=== PATIENT | male | born 1960 | race African-American/Black ===

== ENCOUNTER 2021-06-21 03:38 | Inpatient (IN) | payer SELFPAY ==
[2021-06-21 04:07] VITALS: BMI 28.3
[2021-06-21] MEDS ORDERED: Acetaminophen 650 MG Suppository PR PRN (04:54)
[2021-06-21] MEDS ORDERED: Ondansetron ODT 4 MG TAB PO PRN (04:54)
[2021-06-21 04:56] LABS: SARS-CoV-2 NAA Rapid Test Not Detected (NotDetected)
[2021-06-21] MEDS: Ondansetron PF 4 MG/2 ML Vial IVP PRN ×2 (05:29→19:45)
[2021-06-21 06:27] LABS: Troponin I 0.022 ng/mL (< 0.028)
[2021-06-21] MEDS: Aspirin 81 mg Enteric Coated Tablet PO SCH (09:34)
[2021-06-21] MEDS: Enoxaparin Sodium 40 MG/0.4 ML SYRINGE SC SCH (09:34)
[2021-06-21] MEDS ORDERED: Clopidogrel Bisulfate 75 MG TAB PO SCH (18:00)
[2021-06-21] MEDS: hydrALAZINE 20 MG/ML VIAL SLOW IVP PRN (19:45)
[2021-06-21] MEDS ORDERED: Amlodipine 10 MG TAB PO SCH (20:00)
[2021-06-21] MEDS: Atorvastatin Calcium 40 MG TAB PO SCH (22:11)
[2021-06-22 03:22] LABS: #Eosinphils 0.1 10x3/uL (0.0-0.5); #Monocytes 0.3 10x3/uL (0.0-1.1); #Neutrophils 1.8 10x3/uL (1.5-8.4); %Basophils 0.5 % (0.0-2.0); %Eosinophils 1.3 % (0.0-6.0); %Monocytes 8.6 % (0.0-10.0); %Neutrophils 47.3 % (40.0-75.0); Hemoglobin 14.4 g/dL (13.5-17.5); Mean Corpuscular HGB CONC 33.7 g/dL (32.0-36.0); Mean Corpuscular Hemoglobin 27.8 pg (27.0-33.0); Mean Corpuscular Volume 82.4 fl (81.2-95.1); Mean Platelet Volume 11.9 fl (7.4-10.4); Platelet Count 157 10x3/uL (150-450); RBC Distribution Width 14.4 % (11.5-14.5); Red Blood Cell (RBC) Count 5.18 10x6/uL (4.32-5.72); White Blood Cell (WBC) Count 3.7 10x3/uL (3.5-10.5)
[2021-06-22 05:33] LABS: Anion Gap 14 mmol/L (10-20); BUN (Urea Nitrogen) 11 mg/dL (8.4-25.7); Calc. Creatinine Clearance 94 mL/min (70-130); Calcium 9.1 mg/dL (7.8-10.44); Carbon Dioxide 25 mmol/L (22-29); Cardiac Risk 4.9 (Less than 4.5); Chloride 106 mmol/L (98-107); Cholesterol 207 mg/dl (< 200 Desired); Glucose 94 mg/dL (70-105); HDL Cholesterol 42 mg/dL (>60 Neg Risk); Potassium 3.8 mmol/L (3.5-5.1); Sodium 141 mmol/L (136-145)
[2021-06-22 06:04] LABS: LDL Cholesterol, Calculated 138 mg/dL; Triglycerides 111 mg/dL (Less than 150)
[2021-06-22] MEDS: hydrALAZINE 20 MG/ML VIAL SLOW IVP PRN (07:07)
[2021-06-22] MEDS ORDERED: hydrALAZINE 20 MG/ML VIAL SLOW IVP PRN (07:37)
[2021-06-22] MEDS: Aspirin 81 mg Enteric Coated Tablet PO SCH (09:03)
[2021-06-22] MEDS: Amlodipine 10 MG TAB PO SCH (09:03)
[2021-06-22] MEDS: Clopidogrel Bisulfate 75 MG TAB PO SCH (09:04)
[2021-06-22] MEDS: Enoxaparin Sodium 40 MG/0.4 ML SYRINGE SC SCH (09:04)
[2021-06-22] MEDS: Lisinopril 20 MG TAB PO SCH (09:04)
[2021-06-22] MEDS: Atorvastatin Calcium 40 MG TAB PO SCH (19:54)
[2021-06-22] MEDS: Acetaminophen 325 MG TAB PO PRN (19:54)
[2021-06-23] MEDS: Aspirin 81 mg Enteric Coated Tablet PO SCH (09:22)
[2021-06-23] MEDS: Enoxaparin Sodium 40 MG/0.4 ML SYRINGE SC SCH (09:22)
[2021-06-23] MEDS: Amlodipine 10 MG TAB PO SCH (09:22)
[2021-06-23] MEDS: Lisinopril 20 MG TAB PO SCH (09:22)
[2021-06-23] MEDS: Clopidogrel Bisulfate 75 MG TAB PO SCH (09:22)
[2021-06-23] MEDS: Acetaminophen 325 MG TAB PO PRN (20:13)
[2021-06-23] MEDS: Atorvastatin Calcium 40 MG TAB PO SCH (20:13)
[2021-06-24] MEDS: Clopidogrel Bisulfate 75 MG TAB PO SCH (09:13)
[2021-06-24] MEDS: Amlodipine 10 MG TAB PO SCH (09:13)
[2021-06-24] MEDS: Aspirin 81 mg Enteric Coated Tablet PO SCH (09:14)
[2021-06-24] MEDS: Acetaminophen 325 MG TAB PO PRN (09:14)
[2021-06-24] MEDS: Enoxaparin Sodium 40 MG/0.4 ML SYRINGE SC SCH (09:14)
[2021-06-24] MEDS: Lisinopril 20 MG TAB PO SCH (09:14)
[2021-06-24 13:04] VITALS: BP 167/91; TEMP 97.8
== END 2021-06-24 12:40 | disposition home or self-care (01) | DRG 68 ==
LOC: UNDOADMOB 03:38 → OBSVTOIN 03:38 → INTOOBSV 03:38 → CSHTELE 03:38 → OBSVTOIN 06-22 10:50 → UNDODISOB 06-24 12:40
PROVIDERS: ADMIT Student in an Organized Health Care Education/Training Program; ATTEND Hospitalist
DX: I66.22 Occlusion and stenosis of left posterior cerebral artery (principal); I16.1 Hypertensive emergency; I10 Essential (primary) hypertension; E78.5 Hyperlipidemia, unspecified; Z20.822 Contact with and (suspected) exposure to COVID-19; Z91.14 Patient's other noncompliance with medication regimen; Z79.82 Long term (current) use of aspirin; Z79.02 Long term (current) use of antithrombotics/antiplatelets; Z79.899 Other long term (current) drug therapy
CPT/HCPCS: 36415; 70450; 70496; 70498; 70551; 80048; 80061; 84484; 85025; 93306; 96372; 96374; 96375; 96376; G0378; J0360; J1650; J2405; U0002